=== PATIENT | female | born 1995 | race Caucasian/White ===

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

== ENCOUNTER 2018-01-02 20:31 | Emergency (ER) | payer BC ==
--- OUTSIDE RECORDS SUMMARY | 2018-01-02 20:37 | XMS REPORT | Continuity of Care Document ---
:1995 External Reference #:[id number] Author Name Ernst Rocha M.D. Address [address] [facility] [address] [place] [address] Care Team Providers Name Role Phone HCP given Primary Care Physician Unavailable Payers Type Date Identification Numbers Payment Provider Subscriber Policy Number: [id number] Janki Byrne PayID: [id number] [address] [place] [address] Advance Directives Description No Information Available Problems Date Description Provider Status Onset: 12/30/2017 Insomnia Kerrie Holloway PA Active Onset: 08/05/2017 Irregular periods Kerrie Holloway PA Active Onset: 08/05/2017 Adjustment disorder with mixed emotional Kerrie Holloway PA Active features Family History Date Family Member(s) Problem(s) Comments Father [place] x2 Father Hypertension Father Hypercholesterolemia Father Obesity Father Diabetes, NOS Mother Diabetes, Nos Mother Hypertension Mother Hypercholesterolemia Mother Obesity Siblings 1 Paternal Uncles due to [place] () - age 34 Social History Type Date Description Comments Sex Unknown Education 08/05/2017 Currently Attending College Marital Status Single 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 Working Tobacco Use Start: Unknown Denies Cigarette Use ETOH Use Denies alcohol use Recreational Drug Use Denies Drug Use Tobacco Use Start: Unknown Non Smoker Smoking Status Reviewed: 08/11/17 Non Smoker Exercise Type/Frequency Exercises rarely Sun Exposure Does not use sunscreen Seat Belt/Car Seat Seat Belt Use - Yes Guns in Home No Smoke Alarms Yes smoke alarm Currently Active 08/05/2017 Has never engaged in sexual activity Contraceptive Methods BCP Additional Info Sexual preference is men Allergies, Adverse Reactions, Alerts Description No Known Drug Allergies Medications Medication Date Status Form Strength Qnty SIG Indications Ordering Provider Buspirone HCL Active Tablets 10mg 60tabs 1 tab by F43.23 Silcoff, 018 mouth Ernst, twice a M.D. day for anxiety Sertraline HCL Active Tablets 100mg 30tabs 1 tab by F43.23 Sopchak, 018 mouth Lefty, every day D.O. Trazodone HCL Active Tablets 50mg 30tabs take 1 G47.00 Silcoff, 018 tablet by Ernst, mouth at M.D. bedtime as needed for trouble sleeping Scottie 24 Fe Active Tablets 1-20mg-mcg Take One Unknown 018 (24) Tablet By Mouth Every Day Escitalopram Hx Tablets 20mg 30tabs 1 tab by F43.23 Silcoff, Oxalate 018 - mouth Ernst, every day M.D. 018 Escitalopram Hx Tablets 10mg 30tabs 1 by mouth F43.23 Silcoff, Oxalate 018 - every day Ernst, M.D. 018 Medications Administered in Office Medication Date Status Form Strength Qnty SIG Indications Ordering Provider TB Intradermal Administered Injection Unknown Test 004 TB Intradermal Administered Injection Unknown Test 999 Immunizations CPT Code Status Date Vaccine Lot # 10018 Given 10/07/2015 Menactra Menningitis Vaccine 28160 Given 10/31/2010 Menomune Meningococcal Immunization 39278 Given 10/28/2009 Varicella (Chicken Pox) Immunization 50652 Given 10/28/2009 Adacel or Boostrix, TDaP 10016 Given 07/03/2002 Poliomyelitis Immunization 10743 Given 07/03/2002 MMR Virus Immunization 23425 Given 07/03/2002 Dtap Immunization (Tripedia) (Infanrix) 48244 Given 11/12/1999 Prevnar (Pneumococcal Conjugate) 33459 Given 05/16/1999 Dtap Immunization (Tripedia) (Infanrix) 26899 Given 02/10/1999 MMR Virus Immunization 51697 Given 02/10/1999 Hib 4 Dose, Acthib 12244 Given 11/18/1998 Varicella (Chicken Pox) Immunization 79682 Given 11/18/1998 Poliomyelitis Immunization 91884 Given 07/15/1998 Hep B Immunization, Ped/Adolescent To 11 Yrs 23862 Given 05/13/1998 Dtap Immunization (Tripedia) (Infanrix) 63285 Given 05/13/1998 Rotavirus,Vaccine, "rotateq" 49184 Given 05/13/1998 Hib 4 Dose, Acthib 22353 Given 03/17/1998 Poliomyelitis Immunization 35697 Given 03/17/1998 Dtap Immunization (Tripedia) (Infanrix) 82976 Given 03/17/1998 Rotavirus,Vaccine, "rotateq" 69792 Given 03/17/1998 Hib 4 Dose, Acthib 81306 Given 02/03/1998 Hep B Immunization, Ped/Adolescent To 11 Yrs 23966 Given 01/06/1998 Poliomyelitis Immunization 66690 Given 01/06/1998 Dtap Immunization (Tripedia) (Infanrix) 86392 Given 01/06/1998 Rotavirus,Vaccine, "rotateq" 41917 Given 01/06/1998 Hib 4 Dose, Acthib 21824 Given 1997 Hep B Immunization, Ped/Adolescent To 11 Yrs Vital Signs Date Vital Result Comment 12/30/2017 4:34pm BP Systolic 116 mmHg BP Diastolic 82 mmHg 11/20/2017 4:34pm BP Systolic 122 mmHg BP Diastolic 80 mmHg Weight 219.00 lb w/shoes 09/23/2017 10:18am BP Systolic 124 mmHg BP Diastolic 84 mmHg Weight 213.00 lb 08/26/2017 9:29am BP Systolic 128 mmHg BP Diastolic 80 mmHg Weight 209.00 lb 08/05/2017 9:57am BP Systolic 132 mmHg BP Diastolic 82 mmHg Height 63 inches 5'3" Weight 206.00 lb BMI (Body Mass Index) 36.5 kg/m2 Results Description No Information Available Procedures Date Code Description Status 09/23/2017 40901 Brief Emotional/Behav Assessment W/ Scoring Doc Per Completed Standard Inst Encounters Type Date Location Provider Dx Diagnosis Office Visit 12/30/2017 Main Office Kerrie Holloway PA F43.23 Adjustment disorder 4:10p with mixed anxiety and depressed mood G47.00 Insomnia, unspecified R53.83 Other fatigue Office Visit 11/20/2017 4:15p Main Office Kerrie Holloway, F43.23 Adjustment disorder PA with mixed anxiety and depressed mood G47.00 Insomnia, unspecified Office Visit 09/23/2017 10:05a Main Office Kerrie Holloway, F43.23 Adjustment disorder PA with mixed anxiety and depressed mood G47.00 Insomnia, unspecified Z13.89 Encounter for screening for other disorder Z79.899 Other middle or intermediate school principal (current) drug therapy Office Visit 08/26/2017 9:25a Main Office Kerrie Holloway, F43.23 Adjustment disorder PA with mixed anxiety and depressed mood Office Visit 08/05/2017 9:45a Main Office Kerrie Holloway F43.23 Adjustment disorder PA with mixed anxiety and depressed mood N92.6 Irregular menstruation, unspecified Plan of Treatment Future Appointment(s):01/20/2018 4:10 pm - Kerrie Holloway PA at [id number] - Kerrie Holloway, [id number] Adjustment disorder with mixed anxiety and depressed moodNew Medication:Sertraline HCL 100 mg - 1 tab by mouth every dayComments:Will switch from lexapro to sertraline. Recheck in few weeks, sooner if needed. Pt looking into getting a new counselor--encouraged to do so roscoe.Follow up:f/u few weeks, sooner if lszavnB95.00 Insomnia, unspecifiedComments:Doing well on trazodone, continue same.
[2018-01-02 20:46] VITALS: BP 144/90
--- NOTE | 2018-01-02 21:00 | UC ---
Upper Extremity HPI - HPI Summary HPI Summary: 22-year-old female presents with right wrist pain. States was walking her dog yesterday when she tripped and fell onto an outstretched arm. Complains of pain over her anatomical snuffbox. Worsens with movement. Denies extremity numbness or tingling. - History of Current Complaint Chief Complaint: UCUpperExtremity Stated Complaint: WRIST INJURY Time Seen by Provider: 01/02/18 20:52 Hx Obtained From: Patient Hx Last Menstrual Period: 10300310 ?: No Onset/Duration: Sudden Onset Severity Currently: Moderate Pain Intensity: 8 Location Of Pain: Is Discrete @ Aggravating Factor(s): Movement Alleviating Factor(s): Nothing Associated Signs And Symptoms: Negative: Swelling, Bruising, Weakness, Numbness/ Tingling - Allergies/Home Medications Allergies/Adverse Reactions: Allergies Allergy/AdvReac Type Severity Reaction Status Date / Time No Known Allergies Allergy Verified 01/02/18 20:46 Home Medications: Home Medications Ibuprofen TAB* [Motrin TAB* 400 MG] 400 mg PO Q6H PRN 01/02/18 [History Confirmed 01/02/18] Naproxen Sodium [Naproxen 220 mg] 220 mg PO Q12H PRN 01/02/18 [History Confirmed 01/02/18] PMH/Surg Hx/FS Hx/Imm Hx Previously Healthy: Yes - Denies significant PMH - Surgical History Surgical History: None Surgery Procedure, Year, and Place: d&c - Family History Family History: Noncontributory - Social History Occupation: Student Lives: With Family Alcohol Use: None Substance Use Type: None Smoking Status (MU): Never Smoked Tobacco Review of Systems Constitutional: Negative Skin: Negative Motor: Negative Neurovascular: Negative Musculoskeletal: Other: - See HPI All Other Systems Reviewed And Are Negative: Yes Physical Exam Triage Information Reviewed: Yes Appearance: Well-Appearing, No Pain Distress, Well-Nourished Vital Signs: Initial Vital Signs Temp 98.4 F 01/02/18 20:39 Pulse 70 01/02/18 20:39 Resp 16 01/02/18 20:39 BP 144/90 01/02/18 20:39 Pulse Ox 99 01/02/18 20:39 Vital Signs Reviewed: Yes Respiratory: Positive: No respiratory distress Cardiovascular: Positive: Pulses Normal, Brisk Capillary Refill Musculoskeletal: Positive: Strength Intact, ROM Intact - Mild pain with ROM, No Edema, Other: - Tenderness over anatomical snuffbox. No gross deformity, ecchymosis, or erythema. Neurological: Positive: Alert, Other: - Sensation intact distally Skin Exam: Normal Diagnostics - Radiology No standard instances Radiology Interpretation Completed By: ED Physician - Questionable scaphoid fracture, Radiologist - EXAM: XR Right Hand, 1 or 2 Views EXAM DATE/TIME: 2017 9:04 PM CLINICAL HISTORY: 22 years old, female; Pain and injury or trauma; Fall; Initial encounter; Sprain or strain; Carpals and radius; Right; Wrist; Injury date: 01/01/18; Additional info: Patient fell on outstreched hand yesterday, pain in scaphoid and distal radius of right wrist. TECHNIQUE: XR Right hand 1 or 2 views. COMPARISON: No relevant prior studies available. FINDINGS: Bones/joints: No fracture or dislocation. Joint spaces are preserved. No osseous lesions or erosions. Soft tissues: Normal. IMPRESSION: Radiographically normal right hand. Upper Extremity Course/Dx - Course Course Of Treatment: 22 year old female presents with right wrist pain after trip and fall onto an outstretched hand. Exam revealed tenderness over the anatomical snuffbox. X-ray was reviewed by radiology and read as normal however based on her history and exam I have a high suspicion for a scaphoid fracture. Patient was placed in thumb spica splint by RN. Circulation and sensation intact pre and post application. Recommend NSAIDs and RICE. She is to follow up with ortho within 7 days for re-evaluation. Warning symptoms reviewed. Verbalizes understanding and agrees with POC. - Differential Dx/Diagnosis Differential Diagnosis/HQI/PQRI: Contusion, Fracture (Closed), Sprain Provider Diagnoses: right wrist injury Discharge - Sign-Out/Discharge Documenting (check all that apply): Patient Departure All imaging exams completed and their final reports reviewed: Yes - Discharge Plan Condition: Stable Disposition: HOME Patient Education Materials: Wrist Injury (ED) Referrals: Camden Dozier MD [Primary Care Provider] - Viky Slaughter MD [Medical Doctor] - 7 Days (Call for appointment.) Additional Instructions: The X-ray performed in the clinic tonight was reviewed by the radiologist as normal however based on the location of your pain I have a high degree of suspicion that you may have a fracture of the scaphoid bone in your right wrist. Wear the thumb spica splint that was applied in the clinic. You may remove to shower but should wear at all other times. Use naproxen 1 tab twice a day with food for pain. Rest the arm as much as possible. Apply ice to the affected area for 15-20 minutes 4 times a day. Keep the arm elevated at the level of your heart to help reduce swelling. Follow up with Dr. Slaughter, orthopedic surgery, within 7 days for further evaluation. Call for appointment. Seek immediate medical attention in the emergency room if you develop pain that is not managed with pain medication, increased swelling, numbness or tingling in hand or fingers, or any worsening of symptoms. - Billing Disposition and Condition Condition: STABLE Disposition: Home
--- NOTE | 2018-01-02 21:44 | RAD ---
EXAM: XR Right Hand, 1 or 2 Views EXAM DATE/TIME: 01/02/2018 9:04 PM CLINICAL HISTORY: 22 years old, female; Pain and injury or trauma; Fall; Initial encounter; Sprain or strain; Carpals and radius; Right; Wrist; Injury date: 01/01/18; Additional info: Patient fell on outstreched hand yesterday, pain in scaphoid and distal radius of right wrist. TECHNIQUE: XR Right hand 1 or 2 views. COMPARISON: No relevant prior studies available. FINDINGS: Bones/joints: No fracture or dislocation. Joint spaces are preserved. No osseous lesions or erosions. Soft tissues: Normal. IMPRESSION: Radiographically normal right hand. To contact [facility] with a general question: [facility] - [phone] For direct physician to physician contact: Physician Hotline - [phone] [facility] ([facility] Facility ID #[id number])
== END 2018-01-02 22:15 | disposition home or self-care (01) ==
LOC: UCEAST 20:31
DX: S69.91XA Unspecified injury of right wrist, hand and finger(s), initial encounter (principal); W01.0XXA Fall on same level from slipping, tripping and stumbling without subsequent striking against object, initial encounter; Y93.K1 Activity, walking an animal; Y92.9 Unspecified place or not applicable
CPT/HCPCS: 99212; G0463

== ENCOUNTER 2018-02-13 17:53 | Emergency (ER) | payer BC ==
--- OUTSIDE RECORDS SUMMARY | 2018-02-13 17:59 | XMS REPORT | Continuity of Care Document ---
:1995 External Reference #:[id number] Author Name Ernst Rocha M.D. Address [address] [facility] [address] [place] [address] Care Team Providers Name Role Phone HCP given Primary Care Physician Unavailable Payers Type Date Identification Numbers Payment Provider Subscriber Policy Number: [id number] Janki Byrne PayID: [id number] [address] [place] [address] Advance Directives Description No Information Available Problems Date Description Provider Status Onset: 01/20/2018 Vitamin D deficiency Kerrie Holloway PA Active Onset: 12/30/2017 Insomnia Kerrie Holloway PA Active Onset: 08/05/2017 Irregular periods Kerrie Holloway PA Active Onset: 08/05/2017 Adjustment disorder with mixed emotional Kerrie Holloway PA Active features Family History Date Family Member(s) Problem(s) Comments Father VA x2 Father Hypertension Father Hypercholesterolemia Father Obesity Father Diabetes, NOS Mother Diabetes, Nos Mother Hypertension Mother Hypercholesterolemia Mother Obesity Siblings 1 Paternal Uncles due to VA () - age 34 Social History Type Date Description Comments Sex Unknown Education 08/05/2017 Currently Attending College Marital Status Single 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 a day as needed for anxiety attacks Sertraline HCL Active Tablets 100mg 30tabs 1 tab by F43.23 Sopchak, 018 mouth Lefty, every day D.O. Trazodone HCL Active Tablets 50mg 30tabs take 1 G47.00 Silcoff, 018 tablet by Ernst, mouth at M.D. bedtime as needed for trouble sleeping Scottie 24 Fe Active Tablets 1-20mg-mcg Take One Unknown 018 (24) Tablet By Mouth Every Day Buspirone HCL Hx Tablets 10mg 60tabs 1 tab by F43.23 Silcoff, 018 - mouth Ernst, twice a M.D. 018 day for anxiety Escitalopram Hx Tablets 20mg 30tabs 1 tab [...] CPT Code Status Date Vaccine Lot # [id number] Given 10/07/2015 Menactra Menningitis Vaccine 17350 Given 10/31/2010 Menomune Meningococcal Immunization 42128 Given 10/28/2009 Varicella (Chicken Pox) Immunization 52368 Given 10/28/2009 Adacel or Boostrix, TDaP 34171 Given 07/03/2002 Poliomyelitis Immunization 54702 Given 07/03/2002 MMR Virus Immunization 95678 Given 07/03/2002 Dtap Immunization (Tripedia) (Infanrix) 32868 Given 11/12/1999 Prevnar (Pneumococcal Conjugate) 27211 Given 05/16/1999 Dtap Immunization (Tripedia) (Infanrix) 26821 Given 02/10/1999 MMR Virus Immunization 16693 Given 02/10/1999 Hib 4 Dose, Acthib 21047 Given 11/18/1998 Varicella (Chicken Pox) Immunization 47903 Given 11/18/1998 Poliomyelitis Immunization 58290 Given 07/15/1998 Hep B Immunization, Ped/Adolescent To 11 Yrs 66085 Given 05/13/1998 Dtap Immunization (Tripedia) (Infanrix) 78737 Given 05/13/1998 Rotavirus,Vaccine, "rotateq" 73328 Given 05/13/1998 Hib 4 Dose, Acthib 31981 Given 03/17/1998 Poliomyelitis Immunization 93747 Given 03/17/1998 Dtap Immunization (Tripedia) (Infanrix) 39621 Given 03/17/1998 Rotavirus,Vaccine, "rotateq" 05579 Given 03/17/1998 Hib 4 Dose, Acthib 38699 Given 02/03/1998 Hep B Immunization, Ped/Adolescent To 11 Yrs 50203 Given 01/06/1998 Poliomyelitis Immunization 49867 Given 01/06/1998 Dtap Immunization (Tripedia) (Infanrix) 77235 Given 01/06/1998 Rotavirus,Vaccine, "rotateq" 36644 Given 01/06/1998 Hib 4 Dose, Acthib 73668 Given 1997 Hep B Immunization, Ped/Adolescent To 11 Yrs Vital Signs Date Vital Result Comment 01/20/2018 4:38pm BP Systolic 124 mmHg BP Diastolic 80 mmHg Weight 231.00 lb 12/30/2017 4:34pm BP Systolic 116 mmHg BP [...] BMI (Body Mass Index) 36.5 kg/m2 Results Test Date Facility Test Result H/L Range Note Iron & Iron 01/08/2018 Counts Include [facility]. Serum Iron 97 g/dL N 50- 170 1 Binding Capacity LABORATORY [phone] Total Iron Binding Capacity 405 g/dL N 250-450 Transferrin %Saturation 24 % N 12-57 CBC Auto Diff 01/08/2018 Counts Include [facility]. White Blood 6.3 K/uL N 3.1-10.7 LABORATORY Count [phone] Red Blood Count 5.16 M/uL N 3.90-5.40 Hemoglobin 14.7 gm/dL N 11.6-15.8 Hematocrit 44.9 % N 36.0-46.1 Mean Cell Volume 87.0 fl N 80.9-99.0 Mean Corpuscular HGB 28.5 pg N 25.9-32.7 Mean Corpuscular HGB Conc 32.7 g/dL N 30.8-34.3 Platelet Count 309 K/uL N 155-360 Red Cell Distri Width SD 40.5 fl N 3-47 Red Cell Distri Width %CV 13.0 % N 11.7-14.4 Mean Platelet Volume 9.5 fL N 8.9-12.4 Neut% 57.7 % N 28.0-68.0 Lymph % 33.0 % N 20.0-42.0 [place] % 7.2 % N 4.3-13.2 Eo% 1.3 % N 0.0-6.6 Bas% 0.8 % N 0.0-1.1 Neut# 3.63 K/uL N 1.8-7.0 Lymph # 2.07 K/uL N 1.0-4.0 [place] # 0.45 K/uL N 0.3-0.9 Eos # 0.08 K/uL N 0.0-0.5 Baso # 0.05 K/uL N 0.0-0.1 Comp Metabolic Panel 01/08/2018 Counts Include 234 [facility] At [facility]. Glucose 105 mg/dL N 74-106 LABORATORY [phone] BUN 19 mg/dL High 7-18 Creatinine 0.9 mg/dL N 0.6-1.3 Glom Filtration Rate, Estimate >60 mL/min >60 If >60 mL/min >60 2 BUN/Creat 21.1 ratio Sodium 141 mmol/L N 136-145 Potassium 3.8 mmol/L N 3.5-5.1 Chloride 110 mmol/L High 98-107 Carbon Dioxide 26 mmol/L N 21-32 Anion Gap 5 mEq/L Low 8-16 Calcium 9.1 mg/dL N 8.5-10.1 Total Protein 8.0 g/dL N 6.4-8.2 Albumin 3.5 g/dL N 3.4-5.0 Globulin 4.5 g/dL High 1.9-4.3 Alb/Glob 0.8 ratio Bilirubin,Total 0.2 mg/dL N 0.2-1.0 Sgot/Ast 20 U/L N 15-37 SGPT/Alt 28 U/L N 12-78 Alkaline Phosphatase 77 U/L N 45-117 Laboratory 01/08/2018 [facility] Thyroid Stim 1.83 N 0.30- 4.20 test finding LABORATORY Hormone uIU/mL [phone] Hemoglobin A1c 01/08/2018 [facility] Glycohemoglobin 5.6 % N 4.2-6.3 3 (Glyco HGB) LABORATORY (A1c) [phone] eAG 114 mg/dL Laboratory 01/08/2018 Counts Include [facility]. Vitamin 28.0 Low 30.0- 100.0 4 test finding LABORATORY D,25-Hydroxy ng/mL [phone] Vitamin B12 01/08/2018 Counts Include [facility]. Vitamin B12 441 pg/mL N 193-986 And Folate LABORATORY [phone] Folic Acid 8.7 ng/mL N 3.1-17.5 1 R53.83 2 Note: Persistent reduction for 3 months or more in an eGFR <60 mL/min/1.73 m2 defines CKD. Patients with eGFR values >/=60 mL/min/1.73 m2 may also have CKD if evidence of persistent proteinuria is present. The original MDRD equation for estimated GFR is not valid for patients less than 18 years of age. Additional information may be found at www.kdoqi.org. 3 Elevated levels of HbA1c suggest the need for more aggressive treatment of glycemia. The [place] Diabetes Association recommends that a primary goal of therapy should be a HbA1c of <7% and that physicians should re-evaluate the treatment regimen in patients with HbA1c values consistently >8%. 4 Vitamin D deficiency has been defined by the Sp[place] of Medicine and an Endocrine Society practice guideline as a level of serum 25-OH vitamin D less than 20 ng/mL (1,2). The Endocrine Society went on to further define vitamin D insufficiency as a level between 21 and 29 ng/mL (2). 1. IOM ([place] of Medicine). 2010. Dietary reference intakes for calcium and D. [place]: The National Academies Press. 2. Charles MF, Mery NC, Sridevi CORONADO, et al. Evaluation, treatment, and prevention of vitamin D deficiency: an Endocrine Society clinical practice guideline. JCEM. 2010; 96(2):7701-30. Performed at: RN - [facility] [address] [id number] Laboratory Clerk: Salina Crum MD, Phone: [phone] Procedures Date Code Description Status 09/23/2017 60540 Brief Emotional/Behav Assessment W/ Scoring Doc Per Completed Standard Inst Encounters Type Date Location Provider Dx Diagnosis Office Visit 01/20/2018 Main Office Kerrie Holloway PA F43.23 Adjustment disorder 4:10p with mixed anxiety and depressed mood E55.9 Vitamin D deficiency, unspecified S63.501S Unspecified sprain of right wrist, sequela Office Visit 12/30/2017 4:10p Main Office Kerrie Holloway F43.23 Adjustment disorder PA with mixed anxiety and depressed mood G47.00 Insomnia, unspecified R53.83 Other fatigue Office Visit 11/20/2017 4:15p Main Office Kerrie Holloway F43.23 Adjustment disorder PA with mixed anxiety and depressed mood G47.00 Insomnia, unspecified Office Visit 09/23/2017 10:05a Main Office Kerrie Holloway F43.23 Adjustment disorder PA with mixed anxiety and depressed mood G47.00 Insomnia, unspecified Z13.89 Encounter for screening for other disorder Z79.899 Other fci (current) drug therapy Office Visit 08/26/2017 9:25a Main Office Kerrie Holloway F43.23 Adjustment disorder PA with mixed anxiety and depressed mood Office Visit 08/05/2017 9:45a Main Office Kerrie Holloway F43.23 Adjustment disorder PA with mixed anxiety and depressed mood N92.6 Irregular menstruation, unspecified Plan of Treatment 11/20/2017 - Kerrie Holloway, PAF43.23 Adjustment disorder with mixed anxiety and depressed moodNew Medication:Sertraline HCL 100 mg - 1 tab by mouth every dayComments:Will switch from lexapro to sertraline. Recheck in few weeks, sooner if needed. Pt looking into getting a new counselor--encouraged to do so roscoe.Follow up:f/u few weeks, sooner if xaxypfI01.00 Insomnia, unspecifiedComments:Doing well on trazodone, continue same.
--- OUTSIDE RECORDS SUMMARY | 2018-02-13 17:59 | XMS REPORT | Continuity of Care Document ---
:1995 External Reference #:[id number] Author Name RonaNikita mckeon Care Team Providers Name Role Phone Camden Dozier MD Primary Care Physician Unavailable Payers Type Date Identification Numbers Payment Provider Subscriber Policy Number: [id number] [facility] Nneka Byrne PayID: [id number] [address] [place] [address] Advance Directives Description No Information Available Problems Date Description Provider Status Onset: 05/23/2017 Palpitations Bruno Jacques M.D., [facility] Active Onset: 05/23/2017 Chest pain Bruno Jacques M.D., [facility], [facility] Active Family History Date Family Member(s) Problem(s) Comments General Heart Disease General Diabetes General Alzheimer's Disease General Hypertension Father Heart Disease AL Father Seasonal Allergies Father Asthma Mother Diabetes Type II Mother Hypertension Mother Hypercholesterolemia Social History Type Date Description Comments Sex Unknown Marital Status Single Lives With Family Occupation Student Tobacco Use Start: Unknown Never Smoked Cigarettes Smoking Status Reviewed: 01/20/18 Never Smoked Cigarettes ETOH Use Never used alcohol Tobacco Use Start: Unknown Patient has never smoked Recreational Drug Use Denies Drug Use Exercise Type/Frequency Exercises regularly Exercise Type/Frequency Walks 2 times a week Allergies, Adverse Reactions, Alerts Description No Known Drug Allergies Medications Medication Date Status Form Strength Qnty SIG Indications Ordering Provider Scottie Fe 03/22 / Active Tablets 1-20mg-mcg 1 tablet Unknown 0000 po daily No Active 11/26/ Hx Unknown Medications 2013 - 2017 Azithromycin / Hx Tablets 250mg as Unknown 0000 - directed 2017 Singulair / Hx Tablets 10mg 1 by mouth Unknown 0000 - every day 05/22/ (pt not 2018 taking) Norethindrone / Hx as Unknown Acetate/Ethinyl 0000 - directed Estradiol 2017 Omeprazole / Hx Capsules 20mg 1 by mouth Unknown 0000 - DR every day (pt not 2018 taking) Immunizations Description No Information Available Vital Signs Date Vital Result Comment 01/20/2018 2:08pm Height 64 inches 5'4" Weight 223.00 lb Heart Rate 76 /min Respiratory Rate 16 /min BMI (Body Mass Index) 38.3 kg/m2 01/05/2018 3:32pm Height 64 inches 5'4" Weight 223.25 lb Heart Rate 78 /min BP Systolic 126 mmHg BP Diastolic 78 mmHg Respiratory Rate 18 /min Pain Level 8 BMI (Body Mass Index) 38.3 kg/m2 07/23/2017 12:48pm Height 64 inches 5'4" Weight 205.31 lb with sandals Heart Rate 80 /min BP Systolic Sitting 120 mmHg Lue reg cuff BP Diastolic Sitting 84 mmHg Lue reg cuff BP Systolic Standing 120 mmHg Lue reg cuff BP Diastolic Standing 88 mmHg Lue reg cuff Respiratory Rate 16 /min BMI (Body Mass Index) 35.2 kg/m2 Height Percentile 45 % Weight Percentile >97th Ejection Fraction 55-60% date 06/27/17 ECHO 05/23/2017 1:16pm Height 64 inches 5'4" Weight 202.00 lb Heart Rate 84 /min BP Systolic 138 mmHg Rue reg cuff BP Diastolic 92 mmHg Rue reg cuff BP Systolic Sitting 138 mmHg Lue reg cuff BP Diastolic Sitting 92 mmHg Lue reg cuff BP Systolic Standing 136 mmHg Lue BP Diastolic Standing 90 mmHg Lue BP Systolic Recheck 112 mmHg by MD BP Diastolic Recheck 70 mmHg by MD Respiratory Rate 16 /min BMI (Body Mass Index) 34.7 kg/m2 Height Percentile 45 % Weight Percentile >97th 12/17/2013 3:54pm Height 64 inches 5'4" Weight 180.00 lb Pain Level 8 BMI (Body Mass Index) 30.9 kg/m2 Height Percentile 50 % Weight Percentile 96th 11/26/2013 2:23pm Height 64 inches 5'4" Weight 180.00 lb Heart Rate 88 /min BP Systolic 121 mmHg BP Diastolic 80 mmHg BMI (Body Mass Index) 30.9 kg/m2 Blood Pressure Percentile 81 % Height Percentile 50 % Weight Percentile 96th Results Test Date Facility Test Result H/L Range Note Basic Metabolic 05/23/2017 [facility] Sodium 140 mmol/L N 133- 145 Panel [address] [place] [address] [phone] Potassium 4.0 mmol/L N 3.5-5.0 Chloride 106 mmol/L N 101-111 Co2 Carbon Dioxide 27 mmol/L N 22-32 Anion Gap 7 mmol/L N 2-11 Glucose 117 mg/dL High 70-100 Blood Urea Nitrogen 16 mg/dL N 6-24 Creatinine 0.81 mg/dL N 0.51-0.95 BUN/Creatinine Ratio 19.8 N 8-20 Calcium 9.5 mg/dL N 8.6-10.3 Egfr Non- 91.1 >60 Egfr 117.1 >60 1 Laboratory test 05/23/2017 [facility] Magnesium 2.1 mg/dL N 1.9-2.7 finding [address] [place] [address] [phone] TSH (Thyroid Stim Horm) 1.39 mcIU/mL N 0.34-5.60 1 Because ethnic data is not always readily available, this report includes an eGFR for both -Americans and non- Americans. The National Kidney Disease Education Program (NKDEP) does not endorse the use of the MDRD equation for patients that are not between the ages of 18 and 70, are , have extremes of body size, muscle mass, or nutritional status, or are non- or non-. According to the National Kidney Foundation, irrespective of diagnosis, the stage of the disease is based on the level of kidney function: Stage Description GFR(mL/min/1.73 m(2)) 1 Kidney damage with normal or decreased GFR 90 2 Kidney damage with mild decrease in GFR 60-89 3 Moderate decrease in GFR 30-59 4 Severe decrease in GFR 15-29 5 Kidney failure <15 (or dialysis) Procedures Date Code Description Status 06/27/2017 57208 ECHO Transthoracic, Real-Time 2D With Doppler And Color Completed Flow 06/27/2017 88395 ECHO Transthoracic, Real-Time 2D With Doppler And Color Completed Flow 06/16/2017 75941 ECHO Stress Test Incl Perf Contiuous ekg Monitoring W/Phys Completed Superv 06/03/2017 46922 Event Monitor/Phys Review/Interp. Completed 05/23/2017 93192 EKG Tracing & Interpretation Completed 11/26/2013 57417 Rad Exam; Knee Comp Completed 11/26/2013 47036 Rad Exam; Knee Comp Completed Encounters Type Date Location Provider Dx Diagnosis Office Visit 01/05/2018 [facility], M25.531 Pain in right 2:30p [facility] wrist Office Visit 07/23/2017 [facility] Bruno Maza R07.9 Chest pain, 1:15p Of Zhane Jacques M.D., unspecified FACC, [facility] Office Visit 05/23/2017 [facility] Bruno Maza R07.9 Chest pain, 1:30p Of Zhane Jacques M.D., unspecified FACC, [facility] R00.2 Palpitations Z82.49 Family hx of ischem heart dis and oth dis of the circ sys Office Visit 12/17/2013 3:45p [facility] C[facility] Office Visit 11/26/2013 2:30p [facility] C[facility] Plan of Treatment Future Appointment(s):02/11/2018 3:00 pm - Viky Slaughter M.D. at [facility]/20/2018 - [facility] RPA-CM25.531 Pain in right wristNew Xrays:Wrist Right 3+ VWS, Ordered: 01/20/18ollow up:Follow up: 3 weeks
[2018-02-13 18:10] VITALS: BP 159/96
--- NOTE | 2018-02-13 19:00 | UC ---
Abdominal Pain Female HPI - HPI Summary HPI Summary: Pt with mild lower abd abdominal pain R>L. Pt states pain deep ache, cramp pain. Pt has take Aleve with releif - non today. Pt states gets pain frequently with this point in cycle. Pt states on day 14 pf cycle. States this pain more intense,but same place.HAs never been evaluated for cysts. no n/v. No back pain. No hematuria, dysuria. No vaginal discharge, itching, odor. No trauma no diarrhea not . no change with position. Pt did work today Pt's medications reviewed this visit - History of Current Complaint Chief Complaint: UCAbdominalPain Stated Complaint: ABD PAIN Time Seen by Provider: 02/13/18 18:47 Hx Obtained From: Patient Hx Last Menstrual Period: 01/22/18 Pain Intensity: 8 Allergies/Adverse Reactions: Allergies Allergy/AdvReac Type Severity Reaction Status Date / Time No Known Allergies Allergy Verified 02/13/18 18:10 Home Medications: Home Medications Sertraline* [Zoloft*] 25 mg PO DAILY 02/13/18 [History Confirmed 02/13/18] PMH/Surg Hx/FS Hx/Imm Hx Previously Healthy: Yes - Surgical History Surgical History: Yes Surgery Procedure, Year, and Place: d&c - Family History Family History: Noncontributory - Social History Alcohol Use: None Substance Use Type: None Smoking Status (MU): Never Smoked Tobacco Review of Systems All Other Systems Reviewed And Are Negative: Yes Constitutional: Positive: Negative Skin: Positive: Negative Gastrointestinal: Positive: Abdominal Pain Genitourinary: Positive: Negative. Negative: Urgency, Vaginal/Penile Discharge Physical Exam - Summary Physical Exam Summary: Vital Signs Reviewed: Yes A+Ox3, no distress, pt easily ambulates, easily changes position, climbs onto exam table without difficulty Eyes: Conjunctiva Clear, MIKE. EOM intact and full ENT: Hearing grossly normal TM x 2 clear, mmoist, uvula midline, no exudate, no erythema Neck: Positive: Supple Respiratory: Positive: No respiratory distress, No accessory muscle use + CTA throughout no w/r Cardiovascular: RRR nl s1, s2 no m/r CBT <2 sec abd soft + BS no guarding, no distension nd pt with very mild pain with deep palp right lower abd no cva Musculoskeletal Exam: ANGEL x 4 without difficulty Strength Intact, ROM Intact Neurological: Positive: Alert, + sensation throughout Psychological: Positive: Normal Response To Family Skin: Positive: no rash, no ecchymosis Vital Signs: Initial Vital Signs Temp 98.4 F 02/13/18 18:05 Pulse 75 02/13/18 18:05 Resp 16 02/13/18 18:05 BP 159/96 02/13/18 18:05 Pulse Ox 100 02/13/18 18:05 Abd Pain Female Course/Dx - Course Course Of Treatment: Pt with RLQ, low pelvic abd pain,c ramping. Pt 2 weeks into cycle. States gets similar pain monthly. Pt without fever, nausea, vomiting. pt not intensifited by movemet. urine neg. preg neg. d/w pt at length - suspect ovarian cyst - low suspicion for appendicitis given exam and hx. Offered home and monitoring with strict return precautions vs transfer to ED for furher eval - US not available at . Pt comfortable going home - will f/u with take away man. reviewed return precautions. states agreement with plan - Differential Dx/Diagnosis Provider Diagnosis: Abdominal pain Discharge - Sign-Out/Discharge Documenting (check all that apply): Patient Departure All imaging exams completed and their final reports reviewed: No Studies - Discharge Plan Condition: Stable Disposition: HOME Patient Education Materials: Abdominal Pain (ED) Forms: *Gen. Provider Communication, *Work Release Referrals: Camden Dozier MD [Primary Care Provider] - Additional Instructions: As discussed with the doctor that evaluated you today, the doctor thinks it is safe for you to go home. It is recommended you contact your provider on Friday to discuss your pain and consider evaluation for ovarian cyst. If your pain increases, you develop fevers, vomiting, increased pain, vaginal discharge, or ANY Other concerns it is recommended you go directly to the emergency department for further testing Okay to take Aleve or ibuprofen (Motrin, Advil) and tylenol for pain Apply a warm cloth to your abdomen to help with discomfort - Billing Disposition and Condition Condition: STABLE Disposition: Home
--- NOTE | 2018-02-15 16:20 | UC ---
- Progress Note Progress Note: 02/15/2018 Urine culture no growth No change Tosha Fernando PA-C Course/Dx - Diagnoses Provider Diagnoses: Abdominal pain Discharge - Sign-Out/Discharge Documenting (check all that apply): Patient Departure - D/C home All imaging exams completed and their final reports reviewed: No Studies - Discharge Plan Condition: Stable Disposition: HOME Patient Education Materials: Abdominal Pain (ED) Forms: *Gen. Provider Communication, *Work Release Referrals: Camden Dozier MD [Primary Care Provider] - Additional Instructions: As discussed with the doctor that evaluated you today, the doctor thinks it is safe for you to go home. It is recommended you contact your provider on Friday to discuss your pain and consider evaluation for ovarian cyst. If your pain increases, you develop fevers, vomiting, increased pain, vaginal discharge, or ANY Other concerns it is recommended you go directly to the emergency department for further testing Okay to take Aleve or ibuprofen (Motrin, Advil) and tylenol for pain Apply a warm cloth to your abdomen to help with discomfort - Billing Disposition and Condition Condition: STABLE Disposition: Home
== END 2018-02-13 19:32 | disposition home or self-care (01) ==
LOC: UCEAST 17:53
DX: R10.31 Right lower quadrant pain (principal); R10.2 Pelvic and perineal pain; Z32.02 Encounter for pregnancy test, result negative
CPT/HCPCS: 81003; 84702; 87086; 99211; G0463

== ENCOUNTER 2018-08-13 20:45 | Emergency (ER) | payer BC ==
[2018-08-13 21:09] VITALS: BP 157/76
--- NOTE | 2018-08-13 21:19 | ED ---
Upper Extremity Pain - HPI Summary HPI Summary: 22 yr old female with right wrist pain. She broke her fall with outstretched arm. She has pain in the right distal radius, ulna and proximal 2/3 metacarpals. No STS. NO bruising. Injury occurred this morning when pulled over by her dog walking up stairs. Pain is moderate. - History of Current Complaint Chief Complaint: UCUpperExtremity Stated Complaint: RIGHT WRIST INJURY Time Seen by Provider: 08/13/18 21:07 Hx Last Menstrual Period: 07/13/18 - Allergies/Home Medications Allergies/Adverse Reactions: Allergies Allergy/AdvReac Type Severity Reaction Status Date / Time No Known Allergies Allergy Verified 08/13/18 21:03 PMH/Surg Hx/FS Hx/Imm Hx Endocrine/Hematology History: Denies: Hx Diabetes Cardiovascular History: Denies: Hx Hypertension, Hx Pacemaker/ICD History: Denies: Hx Renal Disease Musculoskeletal History: Reports: Other Musculoskeletal History - prior right wrist fracture Sensory History: Denies: Hx Hearing Aid Psychiatric History: Denies: Hx Panic Disorder - Surgical History Surgery Procedure, Year, and Place: d&c Infectious Disease History: No Infectious Disease History: Denies: Traveled Outside the [place] in Last 30 Days - Family History Known Family History: Positive: None Family History: Noncontributory - Social History Occupation: Employed Full-time Alcohol Use: None Substance Use Type: Reports: None Smoking Status (MU): Never Smoked Tobacco Review of Systems Constitutional: Negative Positive: Other - right wrist and hand pain after fall. All Other Systems Reviewed And Are Negative: Yes Physical Exam Triage Information Reviewed: Yes Vital Signs On Initial Exam: Initial Vitals Temp Pulse Resp BP Pulse Ox 99.6 F 72 18 157/76 100 08/13/18 21:04 08/13/18 21:04 08/13/18 21:04 08/13/18 21:04 08/13/18 21:04 Vital Signs Reviewed: Yes Appearance: Positive: Well-Appearing, No Pain Distress Skin: Positive: Warm, Skin Color Reflects Adequate Perfusion Head/Face: Positive: Normal Head/Face Inspection Eyes: Positive: EOMI ENT: Positive: Normal ENT inspection Neck: Positive: Nontender Respiratory/Lung Sounds: Positive: Clear to Auscultation, Breath Sounds Present , Other - normal effort Cardiovascular: Positive: RRR, Pulses are Symmetrical in both Upper and Lower Extremities. Negative: Murmur Abdomen Description: Negative: Distended Musculoskeletal: Positive: Other - tender over the distal right radius, and right distla ulna and over the proximal 2,3 metacarpal.Tender over snuff box right wrist. Neurological: Positive: Sensory/Motor Intact, Alert, Oriented to Person Place, Time, CN Intact II-III Psychiatric: Positive: Normal - Richard Coma Scale Best Eye Response: 4 - Spontaneous Best Motor Response: 6 - Obeys Commands Best Verbal Response: 5 - Oriented Coma Scale Total: 15 Procedures - Splinting Right Upper Extremity Location: right thumb, wrist, forarm Hand-Made Type: orthoglass Splint: thumb spica Pre-Proc Neuro Vasc Exam: normal Post-Proc Neuro Vasc Exam: normal Diagnostics - Vital Signs Vital Signs Temp Pulse Resp BP Pulse Ox 08/13/18 21:04 99.6 F 72 18 157/76 100 - Laboratory Lab Statement: Any lab studies that have been ordered have been reviewed, and results considered in the medical decision making process. - Radiology right hand, wrist Radiology Interpretation Completed By: ED Physician - scaphoid fx Course/Dx - Course Course Of Treatment: 22 yr old with scaphoid fracture on xray, and tender in same spot. Thumb spika applied by me. DC home in stable condition. FU with Ortho tomorrow - Diagnoses Provider Diagnoses: Nondisplaced fracture of right scaphoid bone, Hypertension Discharge - Sign-Out/Discharge Documenting (check all that apply): Patient Departure All imaging exams completed and their final reports reviewed: No - Discharge Plan Condition: Good Disposition: HOME Patient Education Materials: Scaphoid Fracture (ED), Hypertension (ED) Forms: *Work Release Referrals: Hernandez Corrigan MD [Medical Doctor] - 1 Day Camden Dozier MD [Primary Care Provider] - - Billing Disposition and Condition Condition: GOOD Disposition: Home
== END 2018-08-13 22:07 | disposition home or self-care (01) ==
LOC: UCCORT 20:45
DX: S62.001A Unspecified fracture of navicular [scaphoid] bone of right wrist, initial encounter for closed fracture (principal); I10 Essential (primary) hypertension; W19.XXXA Unspecified fall, initial encounter
CPT/HCPCS: 84702; 99211; G0463